=== PATIENT | male | born 1980 | race Two or more races ===

== ENCOUNTER 2019-02-06 17:07 | Emergency (ER) | payer SELFPAY ==
[~2019-02-06] VITALS: Ht 177.8 cm; Wt 72.6 kg
[2019-02-06 18:17] LABS: Basophils # (auto) 0.1 uL; Basophils % (auto) 0.7 % (0.0-2.0); Eosinophils # (auto) 0.3 uL; Eosinophils % (auto) 3.3 % (0.0-7.0); Hematocrit 45.4 % (41.0-53.0); Hemoglobin 15.4 g/dL (13.5-17.5); Lymphocytes # (auto) 1.6 uL; Lymphocytes % (auto) 16.9 % (10.0-50.0); Mean Corpuscular Hemoglobin 32.1 pg (28.0-32.0); Mean Corpuscular Hgb Conc. 33.8 g/dL (32.0-36.0); Mean Corpuscular Volume 94.8 fL (80.0-100.0); Monocytes # (auto) 0.7 uL; Monocytes % (auto) 7.6 % (0.0-12.0); Neutrophils # (auto) 6.6 uL; Neutrophils % (auto) 71.5 % (37.0-80.0); Nucleated Red Blood Cells % 0.1 %; Platelet Count (auto) 258 10^3/uL (140-450); Red Blood Cells 4.79 10^6/uL (4.5-5.90); Red Cell Distribution Width 13.4 % (11.8-14.3); White Blood Cell 9.2 10^3/uL (4.4-10.8)
[2019-02-06 18:38] LABS: Albumin 4.2 g/dL (3.4-5.0); Calcium 8.7 mg/dL (8.5-10.1); Potassium 3.8 mmol/L (3.5-5.1)
[2019-02-06 18:40] LABS: Bilirubin, Total 0.3 mg/dL (0.2-1.0); Total Protein 7.7 g/dL (6.4-8.2)
[2019-02-07] MEDS ORDERED: IOHEXOL 300 MG/ML 100ML BOTTLE IJ ONE (01:31)
[2019-02-07 03:20] VITALS: BP 129/91
== END 2019-02-07 04:08 | disposition home or self-care (01) ==
LOC: ER 17:18
DX: R14.0 Abdominal distension (gaseous) (principal); R91.1 Solitary pulmonary nodule; F12.10 Cannabis abuse, uncomplicated; Z90.89 Acquired absence of other organs
CPT/HCPCS: 36415; 74177; 80053; 82150; 83690; 85025; 99284; Q9967

== ENCOUNTER 2022-03-09 14:45 | Emergency (ER) | payer SELFPAY ==
[~2022-03-09] VITALS: Ht 177.8 cm; Wt 55.2 kg
[2022-03-09] MEDS ORDERED: IBUP800T27 PO (16:20)
[2022-03-09] MEDS ORDERED: HYDR-4902 PO (16:20)
[2022-03-09] MEDS ORDERED: HYDROcodone-ACET 5/325MG TAB PO ONE (16:30)
[2022-03-09] MEDS ORDERED: IBUPROFEN 800 MG TAB PO ONE (16:30)
[2022-03-09 16:38] VITALS: BP 117/76
== END 2022-03-09 19:16 | disposition home or self-care (01) ==
LOC: ER 14:45
DX: S33.5XXA Sprain of ligaments of lumbar spine, initial encounter (principal); F17.210 Nicotine dependence, cigarettes, uncomplicated; F12.10 Cannabis abuse, uncomplicated; V43.53XA Car driver injured in collision with pick-up truck in traffic accident, initial encounter; Y93.89 Activity, other specified; Y92.410 Unspecified street and highway as the place of occurrence of the external cause; Y99.8 Other external cause status
CPT/HCPCS: 72131

== ENCOUNTER 2024-02-21 14:32 | Emergency (ER) | payer OTHER ==
[~2024-02-21] VITALS: Ht 177.8 cm; Wt 75.7 kg
[~2024-02-21 14:32] MED LIST: HYDR-4902 PO; IBUP-1456 PO
[2024-02-21] MEDS ORDERED: CEPH500C PO (16:14)
[2024-02-21] MEDS ORDERED: IBUP-1454 PO (16:14)
[2024-02-21] MEDS: NEOMYCIN-BACITRACIN-POLYM UNITDOSE PKG TOP OINT TOP ONE (16:18)
[2024-02-21] MEDS: TETANUS-DIPTH-ACEL PERTUSSIS 0.5ML SYR Tdap IM ONE (16:19)
[2024-02-21 16:32] VITALS: BP 161/94; PULSE 90; RESP 16; TEMP 98.7; O2SAT 97
== END 2024-02-21 16:39 | disposition home or self-care (01) ==
LOC: ER 14:32
DX: S67.22XA Crushing injury of left hand, initial encounter (principal); F17.210 Nicotine dependence, cigarettes, uncomplicated; F15.90 Other stimulant use, unspecified, uncomplicated; Z98.890 Other specified postprocedural states; Z79.899 Other long term (current) drug therapy; W31.0XXA Contact with mining and earth-drilling machinery, initial encounter; Y93.89 Activity, other specified; Y92.89 Other specified places as the place of occurrence of the external cause; Y99.8 Other external cause status
CPT/HCPCS: 73120; 90471; 90715